=== PATIENT | male | born 1940 | race Caucasian/White ===

== ENCOUNTER 2023-12-02 20:56 | Emergency (ER) | payer OTHER, SELFPAY ==
[2023-12-02 21:02] VITALS: BP 156/83
[2023-12-02 21:22] LABS: % Eosinophils 0.2 % (0-6); % Immature Granulocytes 0.2 % (0-0.5); % Lymphocytes 32.3 % (20.5-51.1); % Monocytes 9.7 % (1.7-9.3); % Neutrophils 57.6 % (42.2-75.2); Absolute Lymphocytes 2.6 10^3/uL (1.2-3.4); Absolute Monocytes 0.8 10^3/uL (0.1-0.6); Absolute Neutrophils 4.7 10^3/uL (1.4-6.5); Hematocrit 36.1 % (39.0-52.0); Hemoglobin 13.3 g/dL (13.0-18.0); Mean Corp Hgb Conc. 36.8 g/dL (33.0-37.0); Mean Corpuscular Hgb 32.8 pg (27.0-31.0); Mean Corpuscular Volume 89.1 fL (80.0-94.0); Mean Platelet Volume 10.8 fL (7.4-10.4); Nucleated Red Blood Cells % 0 % (-); Platelet Count 237 10^3/uL (130-400); Red Blood Cell Count 4.05 10^6/uL (4.70-6.10); Red Cell Dist. Width 13.1 % (11.5-14.5); White Blood Cell Count 8.2 10^3/uL (4.8-10.8)
[2023-12-02 21:29] LABS: ALT (SGPT) 23 U/L (0-50); AST (SGOT) 40 U/L (17-59); Albumin 4.2 g/dl (3.5-5.0); Alkaline Phosphatase 56 U/L (38-126); Blood Urea Nitrogen 14 mg/dl (9-20); Calcium 9.4 mg/dl (8.4-10.2); Carbon Dioxide 26 mmol/L (22-30); Chloride 106 mmol/L (98-107); Glucose 95 mg/dl (70-99); Potassium 4.4 mmol/L (3.5-5.1); Sodium 136 mmol/L (135-145); Total Bilirubin 0.3 mg/dl (0.2-1.3); Total Protein 6.4 g/dl (6.3-8.2); eGFR > 60.00
[2023-12-02 21:40] LABS: Troponin I < 0.012 ng/ml
[2023-12-02 21:43] VITALS: BP 130/72
[2023-12-02 22:00] VITALS: BP 141/85
--- NOTE | 2023-12-02 22:27 | ED.GENMED ---
History of Present Illness
General
Chief Complaint: Chest Pain
Source: patient
Exam Limitations: none
Time Seen by Provider: 12/02/23 21:55
History of Present Illness
History of Present Illness:
This is a 82 year old male that comes in with c/o chest pain. States that around 12 noon today he just didn't feel good. States that he had left sided chest pain. States that his is away and he started to get fearful as he didn't want to be
alone. States that he then started to panic. States that the pain is less now. States that a week ago the patient went to and they said that they did an ECG and patient states that they did not. Denies any fever,chills, SOB, abd pain, nausea,
vomiting, diarrhea, headache, dizziness, urinary burning.
Past History
Past History
ED Past Medical History: HTN, Hypercholesterolemia and Other (Constipation)
ED Past Surgical History: Appendectomy and Other (Cataracts)
Social History
Tobacco: Non-smoker
Alcohol: None
Personal:
Living: with family
Review of Systems
Review of Systems
All Other Systems: ROS reviewed and negative except as documented in HPI and ROS
Constitutional: Reports no symptoms; Denies fever or chills
EENT: Reports no symptoms
Respiratory: Denies cough or trouble breathing
Cardiac: Reports chest pain
ABD/GI: Reports no symptoms; Denies abdominal pain, nausea, vomiting or diarrhea
: Reports no symptoms; Denies dysuria, frequency or urgency
Musculoskeletal: Reports no symptoms
Skin: Reports no symptoms
Neurological: Reports no symptoms; Denies dizzy or headache
Psychiatric: Reports no symptoms
Phy Exam
General Physical Exam
General Presentation: well appearing and no apparent distress
General age: appears stated age
General Skin: warm and dry
General Habitus: elderly
General Mental: alert
General Hydration: appears well hydrated
ENT Exam
ENT Exam: TM's normal, pharynx normal and neck supple
Eye Exam
Eye Exam: EOMI
Cardiovascular Exam
Cardiovascular Exam: regular rate/rhythm, no edema and normal peripheral pulses
Pulmonary Exam
Pulmonary Exam: lungs clear, no respiratory distress, no rales, chest non tender, no crackles, no rhonchi, no wheezing and no cough
Gastrointestinal Exam
Gastrointestinal Exam: normal bowel sounds, non tender, soft, no organomegaly, no pulsatile mass and non distended
Musculoskeletal Exam
Musculoskeletal Exam: full ROM and no edema
Skin Exam
Skin Exam: normal color, warm/dry, no rash and no petechia
Psychiatric Exam
Psychiatric Exam: normal mood/affect
Scores
Heart Score for Chest Pain Patients
STEMI patient?: No
History: Slightly or Non-Suspicious
ECG: Normal
Age: >/= 65 years
Risk Factors: 1 or 2 Risk Factors
Troponin: </= Normal Limit
Heart Score for Chest Pain Patients: 3
Heart Score Risk: 2.5% MACE over next 6 weeks
Course
Orders/Labs/Results
Orders:
Orders
12/02/23 20:57
Electrocardiogram (*1) Urgent
Reason for Study: Chest Pain
12/02/23 20:58
EKG- Treatment ONCE
12/02/23 21:09
CMP [Comprehensive Metabolic Panel] Urgent
Complete Blood Count/With Diff Urgent
Troponin I Urgent
12/02/23 22:27
Acetaminophen [Tylenol] 1,000 mg PO NOW STA
CR Chest - 2 Views Urgent
Comment:
Reason For Exam: Chest pain
12/03/23 00:01
Troponin I Urgent
Abnormal Lab Results
12/02/23
21:09
RBC 4.05 L 10^6/uL
(4.70-6.10)
Hct 36.1 L %
(39.0-52.0)
MCH 32.8 H pg
(27.0-31.0)
MPV 10.8 H fL
(7.4-10.4)
Absolute Monos (auto) 0.8 H 10^3/uL
(0.1-0.6)
Monocytes % 9.7 H %
(1.7-9.3)
12/02/23 21:09
12/02/23 21:09
Troponin <0.012, Second Troponin <0.012
Vital Signs
Initial and Last Documented VS:
Initial Vital Signs
Temp Pulse Resp BP Pulse Ox
98.3 F 76 18 156/83 97
12/02/23 21:02 12/02/23 21:02 12/02/23 21:02 12/02/23 21:02 12/02/23 21:02
Last Documented Vital Signs
Temp Pulse Resp BP Pulse Ox
98.3 F 58 21 134/68 96
12/02/23 21:02 12/02/23 23:30 12/02/23 23:30 12/02/23 23:07 12/02/23 23:30
MDM/Problems Addressed
Differential Diagnosis Includes:
Anxiety, Coronary syndrome.
MDM/Problems Addressed:
This is a 82 year old male that comes in with c/o chest pain. States that this started about 12 noon today. States that his is away and then he started to get fearful as he didn't want to be alone. States that he called his daughter and they
brought him here.
Will check labs ECG. and chest x-ray.
Back into see patient. Explained that his Both Troponin are normal. States that he is feeling better. Explained to patient that he will be place on the Cardiology hot line. Patient to return with increased or changing pain, or any other concerns.
Chronic conditions affecting care:
NA
Acute Exacerbation and/or Progression of Chronic Illness:
NA
*Radiology
Radiology exam reviewed: preliminary read by ED provider (Chest- Negative for active disease. )
*Pulse Oximetry
Patient hypoxic: no
*EKG
Interpreted by ED Provider?: Yes
Heart Rate: 62
Rate: normal
Rhythm: sinus
[place]: left axis deviation
Interval: normal interval
QRS Pattern: right bundle branch block
Ischemia: no ischemia
*Levee Superintendent Interpretation
Rate: normal
Heart Rate: 66
*Critical Care Note
Total Time (30-74mins, 75-104mins- exclusive of procedures): Not Applicable
ED Attending Note
-
Portions of this chart may have been created with voice recognition software.� Occasional wrong word or��sound alike� substitutions may have occurred due to the inherent limitations of voice recognition software.
Discharge Plan
Departure
Patient Disposition: Home (Routine Discharge)
Date of Disposition: 12/03/23
Time of Disposition: 00:45
Patient with high blood pressure during this ER visit?: Yes
Condition: Good
Covid-19: Not Applicable
Discharge Problem:
Chest pain
Instructions: Chest Pain CBC Follow Up, BLOOD PRESSURE
Prescriptions:
No Action
losartan 50 mg Tablet
50 mg PO HS
atorvastatin 20 mg Tablet
20 mg PO HS
polyethylene glycol 3350 [Miralax] 17 gram Powder In Packet
17 g PO DAILY
magnesium hydroxide [Medi-Milk Of Magnesia] 400 mg/5 mL Suspension
30 mg PO HS
tamsulosin 0.4 mg Capsule
0.4 mg PO HS
docusate sodium [Colace] 100 mg Capsule
100 mg PO HS
folic acid 1 mg Tablet
1 mg PO DAILY
finasteride 5 mg Tablet
5 mg PO DAILY
cholecalciferol (vitamin D3) [Vitamin D3] 50 mcg (2,000 unit) Tablet
50 mcg PO DAILY
Linzess 290 mcg Capsule
290 mcg PO DAILY
memantine 7 mg Capsule,Sprinkle,Er 24hr
7 mg PO DAILY
mecobalamin (vitamin B12) 1,000 mcg Tablet,Disintegrating
1,000 mcg SUBLINGUAL DAILY
Referrals:
Dwayne Carcamo MD [Family Provider] - Call in 1-3 days for appt
Activity Restrictions/Additional Instructions:
As discussed, your blood work is normal. Your Both Troponin are normal. You have been place on the Cardiology hot line. This means that the Cardiology office will call you the next business day and set you up for an appointment with the
[employer]. IF YOU HAVE INCREASED OR CHANGING PAIN, OR YOU HAVE ANY OTHER CONCERNS PLEASE RETURN TO THE EMERGENCY ROOM.
Interventions
Interventions:
*Risk Screen - Suicide Last Done: 12/02/23 21:02
*General Assessment Last Done: 12/02/23 21:02
*Neglect/Abuse Screening Last Done: 12/02/23 21:02
ED- Fall Risk Assessment Last Done: 12/02/23 22:51
*ED COVID-19 Vaccine History Last Done: 12/02/23 21:02
ED- Cardiac Assessment Last Done: 12/02/23 21:51
Discharge Date and Time
Print Language: SETSWANA
[2023-12-02] MEDS: TYLENOL 1000 MG PO (22:31)
--- NOTE | 2023-12-02 23:00 | EDRN ---
Report received, introduced myself to patient who was just in the bathroom, hooked patient back up to monitor and he is aware we well repeat blood work at 0000, no further complaints
[2023-12-02 23:07] VITALS: BP 134/68
[2023-12-03] VITALS: BP 129/78
[2023-12-03 00:38] LABS: Troponin I < 0.012 ng/ml
--- NOTE | 2023-12-03 01:00 | EDRN ---
Patient was updated on lab results and plan for discharge
== END 2023-12-03 01:09 | disposition home or self-care (01) ==
LOC: EMR 20:56
PROVIDERS: Clinical Nurse Specialist Family Health; Emergency Medicine; EMERGENCY PHYSICIAN Student in an Organized Health Care Education/Training Program; FAMILY PHYSICIAN Internal Medicine
DX: R07.89 Other chest pain (principal); I10 Essential (primary) hypertension; E78.00 Pure hypercholesterolemia, unspecified; I45.10 Unspecified right bundle-branch block
CPT/HCPCS: 99283; 71046; 80053; 84484; 85025; 93005

== ENCOUNTER 2023-12-19 19:39 | Emergency (ER) | payer OTHER, SELFPAY ==
[2023-12-19 19:39] VITALS: BMI 23.9
[2023-12-19 19:46] VITALS: BP 138/64
[2023-12-19 19:59] LABS: % Eosinophils 0.4 % (0-6); % Immature Granulocytes 0.3 % (0-0.5); % Lymphocytes 28.9 % (20.5-51.1); % Monocytes 9.9 % (1.7-9.3); % Neutrophils 60.5 % (42.2-75.2); Absolute Lymphocytes 2.2 10^3/uL (1.2-3.4); Absolute Monocytes 0.8 10^3/uL (0.1-0.6); Absolute Neutrophils 4.6 10^3/uL (1.4-6.5); Hematocrit 36.8 % (39.0-52.0); Hemoglobin 13.5 g/dL (13.0-18.0); Mean Corp Hgb Conc. 36.7 g/dL (33.0-37.0); Mean Corpuscular Hgb 32.8 pg (27.0-31.0); Mean Corpuscular Volume 89.5 fL (80.0-94.0); Mean Platelet Volume 10.4 fL (7.4-10.4); Nucleated Red Blood Cells % 0 % (-); Platelet Count 219 10^3/uL (130-400); Red Blood Cell Count 4.11 10^6/uL (4.70-6.10); Red Cell Dist. Width 12.9 % (11.5-14.5); White Blood Cell Count 7.6 10^3/uL (4.8-10.8)
[2023-12-19 21:23] LABS: Blood Urea Nitrogen 14 mg/dl (9-20); Carbon Dioxide 26 mmol/L (22-30); Chloride 105 mmol/L (98-107); Glucose 101 mg/dl (70-99); Lipase 128 U/L (23-300); Potassium 4.6 mmol/L (3.5-5.1); Sodium 138 mmol/L (135-145); eGFR > 60.00
[2023-12-19 21:24] VITALS: BP 148/71
[2023-12-19 21:24] LABS: ALT (SGPT) 26 U/L (0-50); AST (SGOT) 40 U/L (17-59); Albumin 4.2 g/dl (3.5-5.0); Alkaline Phosphatase 62 U/L (38-126); Calcium 9.1 mg/dl (8.4-10.2); Total Bilirubin 0.4 mg/dl (0.2-1.3); Total Protein 6.7 g/dl (6.3-8.2)
[2023-12-19 21:37] LABS: Estimated Creatinine Clearance 77 ml/min
[2023-12-19 22:00] VITALS: BP 112/63
[2023-12-19 23:29] VITALS: BP 145/74
[2023-12-20 00:02] VITALS: BP 147/70
[2023-12-20] MEDS: NSS 1000 IV (00:08)
--- NOTE | 2023-12-20 00:14 | ED.GENMED ---
History of Present Illness
General
Chief Complaint: Bowel Problem
Source: patient
Exam Limitations: none
Time Seen by Provider: 12/19/23 22:42
History of Present Illness
History of Present Illness:
This is a 83 year old male that comes in with c/o constipation. States that he has not had a BM in the past 2 days. States that he feels discomfort on the right sided. States that he has tried Miralax BID, Metamucal, MOM BID and COlace BID. States
that nothing is happening. Denies any fever, chills, chest pain, SOB, nausea, vomiting, diarrhea, headache, dizziness, urinary burning.
Past History
Past History
ED Past Medical History: HTN, Hypercholesterolemia and Other (Constipation)
ED Past Surgical History: Appendectomy and Other (Cataracts)
Social History
Tobacco: Non-smoker
Alcohol: None
Personal:
Living: with family
Review of Systems
Review of Systems
All Other Systems: ROS reviewed and negative except as documented in HPI and ROS
Constitutional: Reports no symptoms; Denies fever or chills
EENT: Reports no symptoms
Respiratory: Reports no symptoms; Denies cough or trouble breathing
Cardiac: Reports no symptoms; Denies chest pain
ABD/GI: Reports abdominal pain (Right sided pain) and constipated; Denies nausea, vomiting or diarrhea
: Reports no symptoms; Denies dysuria, frequency or urgency
Musculoskeletal: Reports no symptoms
Skin: Reports no symptoms
Neurological: Reports no symptoms; Denies dizzy or headache
Psychiatric: Reports no symptoms
Phy Exam
General Physical Exam
General Presentation: no apparent distress
General age: appears stated age
General Skin: warm and dry
General Habitus: elderly
General Mental: alert
General Hydration: appears well hydrated
ENT Exam
ENT Exam: TM's normal, pharynx normal and neck supple
Eye Exam
Eye Exam: EOMI
Cardiovascular Exam
Cardiovascular Exam: regular rate/rhythm, no edema and normal peripheral pulses
Pulmonary Exam
Pulmonary Exam: lungs clear, no respiratory distress, no rales, chest non tender, no crackles, no rhonchi, no wheezing and no cough
Gastrointestinal Exam
Gastrointestinal Exam: normal bowel sounds, soft, no organomegaly, no pulsatile mass, non distended and tender (Right sided abd tenderness with palpation)
Musculoskeletal Exam
Musculoskeletal Exam: full ROM and no edema
Skin Exam
Skin Exam: normal color, warm/dry, no rash and no petechia
Psychiatric Exam
Psychiatric Exam: normal mood/affect
Course
Orders/Labs/Results
Orders:
Orders
12/19/23 19:52
CBC/With Diff [Complete Blood Count/With Diff] Urgent
CMP [Comprehensive Metabolic Panel] Urgent
Lipase Urgent
12/19/23 23:17
CT Abd/pelvis W Iv Cont Urgent
Comment: hISTORY OF APPENDECTOMY
Reason For Exam: rIGHT SIDED ABD PAIN
0.9% Sodium Chloride 1000 ml [Nss] 1,000 ml IV BOLUS
Abnormal Lab Results
12/19/23
19:52
RBC 4.11 L 10^6/uL
(4.70-6.10)
Hct 36.8 L %
(39.0-52.0)
MCH 32.8 H pg
(27.0-31.0)
Absolute Monos (auto) 0.8 H 10^3/uL
(0.1-0.6)
Monocytes % 9.9 H %
(1.7-9.3)
Glucose 101 H mg/dl
(70-99)
12/19/23 19:52
12/19/23 19:52
Glucose nonfasting. LIpase normal at 128,
Vital Signs
Initial and Last Documented VS:
Initial Vital Signs
Temp Pulse Resp BP Pulse Ox
97.9 F 70 19 138/64 98
12/19/23 19:46 12/19/23 19:46 12/19/23 19:46 12/19/23 19:46 12/19/23 19:46
Last Documented Vital Signs
Temp Pulse Resp BP Pulse Ox
97.9 F 75 18 145/74 99
12/19/23 19:46 12/19/23 22:27 12/19/23 22:27 12/19/23 23:29 12/19/23 23:34
MDM/Problems Addressed
Differential Diagnosis Includes:
Constipation.
MDM/Problems Addressed:
This is a 83 year old male that comes in with c/o constipation. States that he has not moved his bowel in the past 2 days. States that he has right sided abd pain.
Will check labs and get CT scan.
Back into see patient. Explained that his CT does show constipation. Will give patient a bottle of magnesium citrate for home. Explained that this can cause abd cramping and can take up to 6 hours to work. Patient can also try Prune juice and mix
this with apple juice in equal amounts and heat and drink daily. Follow up with the GI specialist. Return with any concerns
Chronic conditions affecting care:
Constipation
Acute Exacerbation and/or Progression of Chronic Illness:
Constipation
*Radiology
Radiology exam reviewed: radiology read reviewed (CT night hawk- Moderate to large stool burden. Correlate for constipation. NO bowel obstruction or bowel wall thickening. Similar-sized small left inguinal hernia containing a nonobstructed loop of
small bowel. Similar small right inguinal hernia containing predominantly fat (with a small bowel ) and all reviewed NAD by ED Provider (CT cont-At the hernia opening). Unremarkable gallbladder and pancreas. No obstructive uropathy. Prominnt
prostate gland. Degenerative changes in the spine with mild scoliosis. Focal bronchiectasis and mucus plugging at the left lung base. )
*Pulse Oximetry
Patient hypoxic: no
*EKG
Interpreted by ED Provider?: NA
Rate: EKG- N/A
*Data Typist Interpretation
Rate: Data Typist- N/A
*Critical Care Note
Total Time (30-74mins, 75-104mins- exclusive of procedures): Not Applicable
ED Attending Note
-
Portions of this chart may have been created with voice recognition software.� Occasional wrong word or��sound alike� substitutions may have occurred due to the inherent limitations of voice recognition software.
Discharge Plan
Departure
Patient Disposition: Home (Routine Discharge)
Date of Disposition: 12/20/23
Time of Disposition: 00:28
Patient with high blood pressure during this ER visit?: No
Condition: Good
Covid-19: Not Applicable
Discharge Problem:
Constipation
Instructions: Constipation, Adult (DC)
Prescriptions:
No Action
losartan 50 mg Tablet
50 mg PO HS
atorvastatin 20 mg Tablet
20 mg PO HS
polyethylene glycol 3350 [Miralax] 17 gram Powder In Packet
17 g PO DAILY
magnesium hydroxide [Medi-Milk Of Magnesia] 400 mg/5 mL Suspension
30 mg PO HS
tamsulosin 0.4 mg Capsule
0.4 mg PO HS
docusate sodium [Colace] 100 mg Capsule
100 mg PO BID
folic acid 1 mg Tablet
1 mg PO DAILY
finasteride 5 mg Tablet
5 mg PO DAILY
cholecalciferol (vitamin D3) [Vitamin D3] 50 mcg (2,000 unit) Tablet
50 mcg PO DAILY
Linzess 290 mcg Capsule
290 mcg PO DAILY
memantine 7 mg Capsule,Sprinkle,Er 24hr
7 mg PO DAILY
mecobalamin (vitamin B12)
100 mcg
Referrals:
Dwayne Carcamo MD [Family Provider] - Call in 1-3 days for appt
Activity Restrictions/Additional Instructions:
As discussed, your blood work is normal. Your CT shows that you are very constipated. You have lower abd hernia's on both sided. Please increase your water intake to 8-8oz glasses daily. You may also mix Prune juice and apple juice in equal amounts
and heat and drink daily. You have been given a bottle of Magnesium Citrate. Please drink the entire bottle. This can cause abdominal cramping and can take up to 6 hours to work. Follow up with the Gastrointestinal specialist for further evaluation.
IF YOU HAVE INCREASED ABD PAIN, VOMITING, OR YOU HAVE ANY OTHER CONCERNS PLEASE RETURN TO THE EMERGENCY ROOM.
Interventions
Interventions:
*Risk Screen - Suicide Last Done: 12/19/23 21:29
*General Assessment Last Done: 12/19/23 21:29
*Neglect/Abuse Screening Last Done: 12/19/23 21:29
ED- Fall Risk Assessment Last Done: 12/19/23 21:29
*ED COVID-19 Vaccine History Last Done: 12/19/23 21:29
LY-Wirrja-Liwtdxbpnd Assessment Last Done: 12/19/23 23:34
Discharge Date and Time
Print Language: MACEDONIAN
[2023-12-20] MEDS: CITROMA 300 ML PO (01:00)
[2023-12-20 01:05] VITALS: BP 143/66
== END 2023-12-20 01:10 | disposition home or self-care (01) ==
LOC: EMR 19:39
PROVIDERS: Emergency Medicine; EMERGENCY PHYSICIAN Student in an Organized Health Care Education/Training Program; FAMILY PHYSICIAN Internal Medicine
DX: K59.00 Constipation, unspecified (principal); J47.9 Bronchiectasis, uncomplicated; K40.90 Unilateral inguinal hernia, without obstruction or gangrene, not specified as recurrent; M41.9 Scoliosis, unspecified; E78.00 Pure hypercholesterolemia, unspecified; I10 Essential (primary) hypertension
CPT/HCPCS: 99284; 96360; 74177; 80053; 83690; 85025; Q9967

== ENCOUNTER 2024-01-21 19:38 | Emergency (ER) | payer OTHER, SELFPAY ==
[2024-01-21 19:43] VITALS: BP 147/76
[2024-01-21 19:51] VITALS: BMI 24.2
--- NOTE | 2024-01-21 20:13 | ED.GENMED ---
History of Present Illness
General
Chief Complaint: Bowel Problem
Source: patient and records
Time Seen by Provider: 01/21/24 19:52
History of Present Illness
History of Present Illness:
83yoM with a history of hypertension and hyperlipidemia presenting for evaluation of constipation. Patient reports ongoing issues with constipation for which he follows with gastroenterology. Patient has not had a bowel movement in the past 2 days.
He has been taking multiple medications including Miralax, Colace, milk of magnesia, and Linzess without improvement. He also self-administered a fleets enema today without success. Patient reports LLQ pain which has been ongoing and keeps patient
up at night at times. He denies any urinary retention, nausea, vomiting. He was seen in the ED last month for similar symptoms and was treated with magnesium citrate.
Past History
Past History
ED Past Medical History: HTN, Hypercholesterolemia and Other (Constipation)
ED Past Surgical History: Appendectomy and Other (Cataracts)
Social History
Tobacco: Non-smoker
Alcohol: None
Personal:
Living: with family
Phy Exam
General Physical Exam
General Presentation: well appearing and no apparent distress
General age: appears stated age
General Skin: warm and dry
General Habitus: normal
General Mental: alert
ENT Exam
ENT Exam: normocephalic
Pulmonary Exam
Pulmonary Exam: no respiratory distress
Gastrointestinal Exam
Gastrointestinal Exam: soft, non distended and tender (+Mild tenderness to LLQ. Abdomen soft, non-distended. No rebound or guarding. )
Palpation: left lower quadrant: Mild tenderness
Rectal Exam: other (No stool in rectal vault on digital rectal exam.)
Skin Exam
Skin Exam: normal color and warm/dry
Psychiatric Exam
Psychiatric Exam: normal mood/affect
Course
Orders/Labs/Results
Orders:
Orders
01/21/24 20:10
CT Abd/pelvis W Iv Cont Urgent
Comment:
Reason For Exam: LLQ pain, constipation
01/21/24 20:13
Complete Blood Count/With Diff Urgent
Comprehensive Metabolic Panel Urgent
01/21/24 21:30
Enema- Treatment ONCE
Type: Milk of Molasses
Abnormal Lab Results
01/21/24
20:13
RBC 3.90 L 10^6/uL
(4.70-6.10)
Hgb 12.5 L g/dL
(13.0-18.0)
Hct 33.9 L %
(39.0-52.0)
MCH 32.1 H pg
(27.0-31.0)
Absolute Monos (auto) 0.7 H 10^3/uL
(0.1-0.6)
Monocytes % 10.3 H %
(1.7-9.3)
Total Protein 6.2 L g/dl
(6.3-8.2)
01/21/24 20:13
01/21/24 20:13
Vital Signs
Initial and Last Documented VS:
Initial Vital Signs
Temp Pulse Resp BP Pulse Ox
98.6 F 64 18 147/76 98
01/21/24 19:43 01/21/24 19:43 01/21/24 19:43 01/21/24 19:43 01/21/24 19:43
Last Documented Vital Signs
Temp Pulse Resp BP Pulse Ox
98.6 F 64 18 147/76 98
01/21/24 19:43 01/21/24 19:43 01/21/24 20:05 01/21/24 19:43 01/21/24 19:43
MDM/Problems Addressed
Differential Diagnosis Includes:
83yoM here with constipation x 2 days. Also c/o LLQ pain. Hx of the same. On multiple medications including Linzess, Miralax, Colace. Seen in the ED last month for the same. He is afebrile and hemodynamically stable. He is well appearing in no
distress. No signs of peritonitis on abdominal exam. Differential diagnosis includes but is not limited to: constipation, diverticulitis, bowel obstruction
Initial ED plan: Check CBC, CMP, and CT abdomen.
*Critical Care Note
Total Time (30-74mins, 75-104mins- exclusive of procedures): Not Applicable
Update Note
Update Note:
Labs overall unremarkable. CT abdomen shows moderate constipation. No obstruction or diverticulitis noted. Patient given a milk of molasses enema and was able to have a moderate BM after enema. Abdominal pain improved and patient requesting
discharge. He was advised to f/u with his PCP and cutter operator [employer]. ED return precautions discussed. He was discharged in stable condition.
ED Attending Note
-
Portions of this chart may have been created with voice recognition software.� Occasional wrong word or��sound alike� substitutions may have occurred due to the inherent limitations of voice recognition software.
Discharge Plan
Departure
Patient Disposition: Home (Routine Discharge)
Date of Disposition: 01/21/24
Time of Disposition: 22:34
Patient with high blood pressure during this ER visit?: Yes
Discharge Problem:
Constipation
Instructions: Constipation, Adult (DC)
Prescriptions:
No Action
losartan 50 mg Tablet
50 mg PO HS
atorvastatin 20 mg Tablet
20 mg PO HS
polyethylene glycol 3350 [Miralax] 17 gram Powder In Packet
17 g PO DAILY
magnesium hydroxide [Medi-Milk Of Magnesia] 400 mg/5 mL Suspension
30 mg PO HS
tamsulosin 0.4 mg Capsule
0.4 mg PO HS
docusate sodium [Colace] 100 mg Capsule
200 mg PO HS
folic acid 1 mg Tablet
1 mg PO DAILY
finasteride 5 mg Tablet
5 mg PO DAILY
cholecalciferol (vitamin D3) [Vitamin D3] 50 mcg (2,000 unit) Tablet
50 mcg PO DAILY
Linzess 290 mcg Capsule
290 mcg PO DAILY
memantine 7 mg Capsule,Sprinkle,Er 24hr
14 mg PO DAILY
mecobalamin (vitamin B12)
100 mcg PO DAILY
Saccharomyces boulardii [Florastor] 250 mg Capsule
250 mg PO DAILY
metoprolol tartrate 25 mg Tablet
25 mg PO DAILY
aspirin 81 mg Capsule
81 mg PO DAILY
Referrals:
Dwayne Carcamo MD [Family Provider] -
Activity Restrictions/Additional Instructions:
Continue taking Miralax, Colace, and Linzess.
Please call your cutter operator [employer] tomorrow for follow-up. Return to the ER with any worsening symptoms.
Interventions
Interventions:
*Risk Screen - Suicide Last Done: 01/21/24 19:58
*General Assessment Last Done: 01/21/24 19:58
*Neglect/Abuse Screening Last Done: 01/21/24 19:58
*ED COVID-19 Vaccine History Last Done: 01/21/24 19:58
TK-Rjovcn-Zgwibxtmeq Assessment Last Done: 01/21/24 19:58
Discharge Date and Time
Print Language: QATARI
[2024-01-21 20:21] LABS: % Eosinophils 0.1 % (0-6); % Immature Granulocytes 0.3 % (0-0.5); % Lymphocytes 34.5 % (20.5-51.1); % Monocytes 10.3 % (1.7-9.3); % Neutrophils 54.8 % (42.2-75.2); Absolute Lymphocytes 2.3 10^3/uL (1.2-3.4); Absolute Monocytes 0.7 10^3/uL (0.1-0.6); Absolute Neutrophils 3.7 10^3/uL (1.4-6.5); Hematocrit 33.9 % (39.0-52.0); Hemoglobin 12.5 g/dL (13.0-18.0); Mean Corp Hgb Conc. 36.9 g/dL (33.0-37.0); Mean Corpuscular Hgb 32.1 pg (27.0-31.0); Mean Corpuscular Volume 86.9 fL (80.0-94.0); Mean Platelet Volume 10.3 fL (7.4-10.4); Nucleated Red Blood Cells % 0 % (-); Platelet Count 235 10^3/uL (130-400); Red Cell Dist. Width 12.4 % (11.5-14.5); White Blood Cell Count 6.8 10^3/uL (4.8-10.8)
[2024-01-21 20:36] LABS: ALT (SGPT) 25 U/L (0-50); AST (SGOT) 42 U/L (17-59); Albumin 3.9 g/dl (3.5-5.0); Alkaline Phosphatase 52 U/L (38-126); Blood Urea Nitrogen 15 mg/dl (9-20); Carbon Dioxide 26 mmol/L (22-30); Chloride 104 mmol/L (98-107); Estimated Creatinine Clearance 75 ml/min; Glucose 94 mg/dl (70-99); Potassium 4.4 mmol/L (3.5-5.1); Sodium 139 mmol/L (135-145); Total Bilirubin 0.3 mg/dl (0.2-1.3); Total Protein 6.2 g/dl (6.3-8.2); eGFR > 60.00
[2024-01-21 22:48] VITALS: BP 143/77
== END 2024-01-21 22:50 | disposition home or self-care (01) ==
LOC: EMR 19:38
PROVIDERS: Physician Assistant; EMERGENCY PHYSICIAN Emergency Medicine; FAMILY PHYSICIAN Internal Medicine
DX: K59.00 Constipation, unspecified (principal); I10 Essential (primary) hypertension; E78.00 Pure hypercholesterolemia, unspecified
CPT/HCPCS: 99285; 74177; 80053; 85025; Q9967

== ENCOUNTER 2024-02-06 19:41 | Emergency (ER) | payer OTHER, SELFPAY ==
[2024-02-06 19:51] VITALS: BP 137/69
[2024-02-06 20:18] LABS: % Eosinophils 0.6 % (0-6); % Immature Granulocytes 0.1 % (0-0.5); % Lymphocytes 35.3 % (20.5-51.1); % Monocytes 9.6 % (1.7-9.3); % Neutrophils 54.4 % (42.2-75.2); Absolute Lymphocytes 2.4 10^3/uL (1.2-3.4); Absolute Monocytes 0.7 10^3/uL (0.1-0.6); Absolute Neutrophils 3.7 10^3/uL (1.4-6.5); Hematocrit 35.2 % (39.0-52.0); Mean Corp Hgb Conc. 36.9 g/dL (33.0-37.0); Mean Corpuscular Hgb 31.6 pg (27.0-31.0); Mean Corpuscular Volume 85.6 fL (80.0-94.0); Mean Platelet Volume 10.4 fL (7.4-10.4); Nucleated Red Blood Cells % 0 % (-); Platelet Count 242 10^3/uL (130-400); Red Blood Cell Count 4.11 10^6/uL (4.70-6.10); Red Cell Dist. Width 12.3 % (11.5-14.5); White Blood Cell Count 6.9 10^3/uL (4.8-10.8)
[2024-02-06 20:34] LABS: ALT (SGPT) 25 U/L (0-50); AST (SGOT) 41 U/L (17-59); Albumin 4.2 g/dl (3.5-5.0); Alkaline Phosphatase 53 U/L (38-126); Blood Urea Nitrogen 13 mg/dl (9-20); Calcium 9.7 mg/dl (8.4-10.2); Carbon Dioxide 25 mmol/L (22-30); Chloride 105 mmol/L (98-107); Glucose 93 mg/dl (70-99); Potassium 4.5 mmol/L (3.5-5.1); Sodium 140 mmol/L (135-145); Total Bilirubin 0.3 mg/dl (0.2-1.3); Total Protein 6.7 g/dl (6.3-8.2); eGFR > 60.00
[2024-02-06 20:35] LABS: Lipase 204 U/L (23-300)
[2024-02-06 21:49] LABS: Urine Albumin Negative (Neg - Trace); Urine Bilirubin Negative (Negative); Urine Character Slightly Cloudy (Clear); Urine Color Yellow; Urine Glucose Negative (Negative); Urine Ketone Negative (Negative); Urine Leukocyte Negative (Negative); Urine Nitrite Negative (Negative); Urine Occult Blood Negative (Negative); Urine Specific Gravity 1.015 (<1.030); Urine Urobilinogen Negative (Neg - 1+); Urine pH 6.5 (5.0-9.0)
--- NOTE | 2024-02-06 23:48 | ED.GENMED ---
History of Present Illness
General
Chief Complaint: Abdominal Pain
Source: patient
Exam Limitations: none
Time Seen by Provider: 02/06/24 22:57
History of Present Illness
History of Present Illness:
This is a 83 year old male that comes in with c/o constipation. States that he always has problems with constipation. State that his last BM was yesterday. State that it was very small. States that he has taken Miralax Colace and Linzess. States
that he also took Gulliver oil today 2 -3 spoons full. States that he has not moved his bowels. states that the day before yesterday he did an enema and Magnesium citrate and this cleaned him out. Denies any fever, chills, chest pain, SOB,
nausea, vomiting, diarrhea, headache, dizziness, urinary burning.
Past History
Past History
ED Past Medical History: HTN, Hypercholesterolemia and Other (Constipation)
ED Past Surgical History: Appendectomy and Other (Cataracts)
Social History
Tobacco: Non-smoker
Alcohol: None
Personal:
Living: with family
Review of Systems
Review of Systems
All Other Systems: ROS reviewed and negative except as documented in HPI and ROS
Constitutional: Reports no symptoms; Denies fever or chills
EENT: Reports no symptoms
Respiratory: Reports no symptoms; Denies cough or trouble breathing
Cardiac: Reports no symptoms; Denies chest pain
ABD/GI: Reports abdominal pain and constipated; Denies nausea, vomiting or diarrhea
: Reports no symptoms; Denies dysuria, frequency or urgency
Musculoskeletal: Reports no symptoms
Skin: Reports no symptoms
Neurological: Reports no symptoms; Denies dizzy or headache
Psychiatric: Reports no symptoms
Phy Exam
General Physical Exam
General Presentation: well appearing and no apparent distress
General age: appears stated age
General Skin: warm and dry
General Habitus: elderly
General Mental: alert
General Hydration: appears well hydrated
ENT Exam
ENT Exam: TM's normal, pharynx normal and neck supple
Eye Exam
Eye Exam: EOMI
Cardiovascular Exam
Cardiovascular Exam: regular rate/rhythm, no edema, no murmur and normal peripheral pulses
Pulmonary Exam
Pulmonary Exam: lungs clear, no respiratory distress, no rales, chest non tender, no crackles, no rhonchi, no wheezing and no cough
Gastrointestinal Exam
Gastrointestinal Exam: normal bowel sounds, non tender, soft, no organomegaly, no pulsatile mass and non distended
Musculoskeletal Exam
Musculoskeletal Exam: full ROM and no edema
Skin Exam
Skin Exam: normal color, warm/dry, no rash and no petechia
Psychiatric Exam
Psychiatric Exam: normal mood/affect
Course
Orders/Labs/Results
Orders:
Orders
02/06/24 20:11
Complete Blood Count/With Diff Urgent
Comprehensive Metabolic Panel Urgent
Lipase Urgent
02/06/24 21:43
Urinalysis Reflex To Culture Urgent
Date Specimen was Collected: 02/06/24
Time Specimen was Collected: 19:57
02/06/24 22:40
Ondansetron Injectable [Zofran] 4 mg .ROUTE .STK-MED ONE
02/06/24 23:48
CR Abdomen - 1 View Urgent
Comment:
Reason For Exam: Constipation
Abnormal Lab Results
02/06/24
20:11
RBC 4.11 L 10^6/uL
(4.70-6.10)
Hct 35.2 L %
(39.0-52.0)
MCH 31.6 H pg
(27.0-31.0)
Absolute Monos (auto) 0.7 H 10^3/uL
(0.1-0.6)
Monocytes % 9.6 H %
(1.7-9.3)
02/06/24 20:11
02/06/24 20:11
Labs unremarkable. Lipase normal at 203, Urine negative for infection.
Vital Signs
Initial and Last Documented VS:
Initial Vital Signs
Temp Pulse Resp BP Pulse Ox
99.3 F 69 20 137/69 98
02/06/24 19:51 02/06/24 19:51 02/06/24 19:51 02/06/24 19:51 02/06/24 19:51
Last Documented Vital Signs
Temp Pulse Resp BP Pulse Ox
98.9 F 68 18 129/87 100
02/07/24 00:00 02/07/24 00:00 02/07/24 00:00 02/07/24 00:00 02/07/24 00:00
MDM/Problems Addressed
Differential Diagnosis Includes:
Constipation chronic,
MDM/Problems Addressed:
This is a 83 year old male that comes in with c/o constipation. states that he did not have a BM today but a little yesterday. Patient is a vegetarian and states that he only eats vegetables.
Explained to patient that his Blood work is normal. Explained that you don't have to move our bowels every day. Explained that since he cleaned himself out 2 days ago there may not be anything in the colon. Will get x-ray.
Back into see patient. Explained that he has stool in the bowel that is on the right sided and has not moved around to the descending colon. Encouraged patient to continue with Miralax, water, fruits and vegetables. Patient to follow up with the PCP
or GI specialist to help with a bowel regimen. Return with any concerns.
Chronic conditions affecting care:
Chronic constiaption
Acute Exacerbation and/or Progression of Chronic Illness:
Constipation
*Radiology
Radiology exam reviewed: preliminary read by ED provider (RENNY- Constipation)
*Pulse Oximetry
Patient hypoxic: no
*EKG
Interpreted by ED Provider?: NA
Rate: EKG- N/A
*Machine Repair Person Interpretation
Rate: Machine Repair Person- N/A
*Critical Care Note
Total Time (30-74mins, 75-104mins- exclusive of procedures): Not Applicable
ED Attending Note
-
Portions of this chart may have been created with voice recognition software.� Occasional wrong word or��sound alike� substitutions may have occurred due to the inherent limitations of voice recognition software.
Discharge Plan
Departure
Patient Disposition: Home (Routine Discharge)
Date of Disposition: 02/07/24
Time of Disposition: 01:01
Patient with high blood pressure during this ER visit?: Yes
Condition: Good
Covid-19: Not Applicable
Discharge Problem:
Constipation
Instructions: Constipation, Adult (DC), BLOOD PRESSURE
Prescriptions:
No Action
losartan 50 mg Tablet
50 mg PO HS
atorvastatin 20 mg Tablet
20 mg PO HS
polyethylene glycol 3350 [Miralax] 17 gram Powder In Packet
17 g PO DAILY
magnesium hydroxide [Medi-Milk Of Magnesia] 400 mg/5 mL Suspension
30 mg PO HS
tamsulosin 0.4 mg Capsule
0.4 mg PO HS
docusate sodium [Colace] 100 mg Capsule
200 mg PO HS
folic acid 1 mg Tablet
1 mg PO DAILY
finasteride 5 mg Tablet
5 mg PO DAILY
cholecalciferol (vitamin D3) [Vitamin D3] 50 mcg (2,000 unit) Tablet
50 mcg PO DAILY
Linzess 290 mcg Capsule
290 mcg PO DAILY
memantine 7 mg Capsule,Sprinkle,Er 24hr
14 mg PO DAILY
mecobalamin (vitamin B12)
100 mcg PO DAILY
Saccharomyces boulardii [Florastor] 250 mg Capsule
250 mg PO DAILY
metoprolol tartrate 25 mg Tablet
25 mg PO DAILY
aspirin 81 mg Capsule
81 mg PO DAILY
Referrals:
Dwayne Carcamo MD [Family Provider] - Call in 1-3 days for appt
Activity Restrictions/Additional Instructions:
As discussed, there is stool in the bowel that is in the ascending colon and this has to move around to the descending colon and rectum. You need to eat more food. Please eat fruit and vegetables daily such as apples, Blueberry's, Raspberries,
Kidney beans and Lentils. This will all help with constipation. Please increase your water intake to 8-8oz glasses daily. Follow up with the family doctor for further evaluation. IF YOU HAVE ANY OTHER CONCERNS PLEASE RETURN TO THE EMERGENCY ROOM.
Interventions
Interventions:
*Risk Screen - Suicide Last Done: 02/06/24 19:51
*General Assessment Last Done: 02/06/24 19:51
*Neglect/Abuse Screening Last Done: 02/06/24 19:51
ED- Fall Risk Assessment Last Done: 02/06/24 19:51
*ED COVID-19 Vaccine History Last Done: 02/06/24 19:51
IM-Bzlobi-Mujgwlcbfs Assessment Last Done: 02/06/24 23:06
Discharge Date and Time
Print Language: BRUNEIAN
[2024-02-07] VITALS: BP 129/87
== END 2024-02-07 01:10 | disposition home or self-care (01) ==
LOC: EMR 19:41
PROVIDERS: Emergency Medicine; EMERGENCY PHYSICIAN Student in an Organized Health Care Education/Training Program; FAMILY PHYSICIAN Internal Medicine
DX: K59.00 Constipation, unspecified (principal); R10.9 Unspecified abdominal pain; I10 Essential (primary) hypertension; E78.00 Pure hypercholesterolemia, unspecified; Z79.82 Long term (current) use of aspirin
CPT/HCPCS: 99283; 74018; 80053; 81003; 83690; 85025; 93005

== ENCOUNTER → 2024-02-17 10:31 | Outpatient (REF) | payer OTHER, SELFPAY | LOC: HWRAD 10:31 | PROVIDERS: ATTENDING PHYSICIAN Internal Medicine Gastroenterology; FAMILY PHYSICIAN Internal Medicine | DX: R19.5 Other fecal abnormalities (principal) | CPT/HCPCS: 74261 ==

== ENCOUNTER 2024-07-02 06:57 | Emergency (ER) | payer OTHER, SELFPAY ==
[2024-07-02 07:01] VITALS: BP 146/73
[2024-07-02] MEDS: OMNIPAQUE 50 ML PO (07:24)
[2024-07-02 07:33] VITALS: BMI 21.2
[2024-07-02 07:49] LABS: % Eosinophils 0.2 % (0-6); % Immature Granulocytes 0.2 % (0-0.5); % Lymphocytes 32.7 % (20.5-51.1); % Monocytes 10.9 % (1.7-9.3); Absolute Lymphocytes 1.8 10^3/uL (1.2-3.4); Absolute Monocytes 0.6 10^3/uL (0.1-0.6); Hemoglobin 13.4 g/dL (13.0-18.0); Mean Corp Hgb Conc. 36.2 g/dL (33.0-37.0); Mean Corpuscular Volume 88.3 fL (80.0-94.0); Mean Platelet Volume 10.6 fL (7.4-10.4); Nucleated Red Blood Cells % 0 % (-); Platelet Count 228 10^3/uL (130-400); Red Blood Cell Count 4.19 10^6/uL (4.70-6.10); Red Cell Dist. Width 13.1 % (11.5-14.5); White Blood Cell Count 5.4 10^3/uL (4.8-10.8)
--- NOTE | 2024-07-02 07:56 | ED.GENMED ---
History of Present Illness
General
Chief Complaint: Bowel Problem
Source: patient
Exam Limitations: none
Time Seen by Provider: 07/02/24 07:09
Nursing documentation reviewed up to this point in time: agreed with
History of Present Illness
History of Present Illness:
83-year-old male past medical history of hypertension hyperlipidemia presenting to the emergency department today with concerns of decreased bowel movements over the past 3 days. He claims this is worse than usual unable to have any bowel movements
despite taking multiple medications to help have a bowel movement. Has had some worsening abdominal bloating and discomfort.
Past History
Past History
ED Past Medical History: HTN, Hypercholesterolemia and Other (Constipation)
ED Past Surgical History: Appendectomy and Other (Cataracts)
Social History
Tobacco: Non-smoker
Alcohol: None
Personal:
Living: with family
Review of Systems
Review of Systems
Allergies reviewed?: Yes
All Other Systems: ROS reviewed and negative except as documented in HPI and ROS
Phy Exam
Physical Exam
Physical Exam:
GENERAL: Alert , in no apparent distress
EYE: pupils equal and reactive
NECK: Supple, no significant adenopathy.
ENT: o/p clr, mmm.
CARDIAC: Regular rate and rhythm .
LUNGS: Clear breath sounds bilaterally, no acute respiratory distress, no wheezes/rales/rhonchi
ABDOMEN: Soft, without focal tenderness, no r/g, no cvat
NEUROLOGICAL: Alert and oriented, no focal neuro deficits
SKIN: Warm and dry, skin intact.
MUSCULOSKELETAL: No edema, well perfused.
PSYCH: Normal and appropriate interaction.
Course
Orders/Labs/Results
Orders:
Orders
07/02/24 07:17
CT Abd/pel W Iv And Oral Contr Urgent
Comment:
Reason For Exam: No bm multiple days, new. concern for CORI
Iohexol [Omnipaque] See Protocol PO NOW STA
07/02/24 07:38
Complete Blood Count/With Diff Urgent
Comprehensive Metabolic Panel Urgent
Lipase Urgent
Abnormal Lab Results
07/02/24
07:38
RBC 4.19 L 10^6/uL
(4.70-6.10)
Hct 37.0 L %
(39.0-52.0)
MCH 32.0 H pg
(27.0-31.0)
MPV 10.6 H fL
(7.4-10.4)
Monocytes % 10.9 H %
(1.7-9.3)
Creatinine 0.6 L mg/dL
(0.7-1.3)
Glucose 102 H mg/dl
(70-99)
07/02/24 07:38
07/02/24 07:38
Vital Signs
Initial and Last Documented VS:
Initial Vital Signs
Temp Pulse Resp BP Pulse Ox
97.8 F 72 16 146/73 98
07/02/24 07:01 07/02/24 07:01 07/02/24 07:01 07/02/24 07:01 07/02/24 07:01
Last Documented Vital Signs
Temp Pulse Resp BP Pulse Ox
97.8 F 72 16 146/73 98
07/02/24 07:01 07/02/24 07:01 07/02/24 07:01 07/02/24 07:01 07/02/24 07:01
MDM/Problems Addressed
MDM/Problems Addressed:
83-year-old male presenting to the emergency department today with concerns of decreased bowel movements in past 3 days. Unable to have a bowel movement in the past 3 days despite multiple medications to help go. Rectal examination without fecal
impaction or abnormality. Plan for CT scan for assessment of possible bowel obstruction. CT without emergent findings. Patient claims that he feels well would like to go home. He was written for additional medications to help with constipation
otherwise will follow-up with GI. He does have an appointment in the next few weeks. Return precautions given.
*Critical Care Note
Total Time (30-74mins, 75-104mins- exclusive of procedures): Not Applicable
ED Attending Note
-
Portions of this chart may have been created with voice recognition software.� Occasional wrong word or��sound alike� substitutions may have occurred due to the inherent limitations of voice recognition software.
Discharge Plan
Departure
Patient Disposition: Home (Routine Discharge)
Date of Disposition: 07/02/24
Time of Disposition: 11:06
Patient with high blood pressure during this ER visit?: No
Condition: Good
Covid-19: Not Applicable
Discharge Problem:
Constipation
Instructions: Constipation, Adult (DC)
Prescriptions:
New
bisacodyl [The Magic Bullet] 10 mg suppository
10 mg NM DAILY PRN (Reason: Constipation) Qty: 12 0RF
No Action
losartan 50 mg Tablet
50 mg PO HS
atorvastatin 20 mg Tablet
20 mg PO HS
polyethylene glycol 3350 [Miralax] 17 gram Powder In Packet
17 g PO DAILY
magnesium hydroxide [Medi-Milk Of Magnesia] 400 mg/5 mL Suspension
30 mg PO HS
tamsulosin 0.4 mg Capsule
0.4 mg PO HS
docusate sodium [Colace] 100 mg Capsule
200 mg PO HS
folic acid 1 mg Tablet
1 mg PO DAILY
finasteride 5 mg Tablet
5 mg PO DAILY
cholecalciferol (vitamin D3) [Vitamin D3] 50 mcg (2,000 unit) Tablet
50 mcg PO DAILY
Linzess 290 mcg Capsule
290 mcg PO DAILY
memantine 7 mg Capsule,Sprinkle,Er 24hr
14 mg PO DAILY
mecobalamin (vitamin B12)
100 mcg PO DAILY
Saccharomyces boulardii [Florastor] 250 mg Capsule
250 mg PO DAILY
metoprolol tartrate 25 mg Tablet
25 mg PO DAILY
aspirin 81 mg Capsule
81 mg PO DAILY
Referrals:
Dwayne Carcamo MD [Family Provider] -
Activity Restrictions/Additional Instructions:
You came to the emergency department today with concerns of constipation. Your CT scan did not see any emergent findings. Please use the suppository and continue your bowel regimen and follow-up closely with GI. Return for any worsening, new or
concerning symptoms.
Interventions
Interventions:
*Risk Screen - Suicide Last Done: 07/02/24 07:01
*General Assessment Last Done: 07/02/24 09:36
*Neglect/Abuse Screening Last Done: 07/02/24 07:01
*ED- Fall Risk Assessment Last Done: 07/02/24 11:10
*ED COVID-19 Vaccine History Last Done: 07/02/24 07:34
*Nursing Disposition Last Done: 07/02/24 11:10
SF-Piuulm-Jnkeoewqdx Assessment Last Done: 07/02/24 07:34
Discharge Date and Time
Discharge Date/Time: 07/02/24 11:10
Print Language: LUXEMBOURG[place]
[2024-07-02 08:01] LABS: ALT (SGPT) 22 U/L (0-50); AST (SGOT) 37 U/L (17-59); Albumin 4.1 g/dl (3.5-5.0); Alkaline Phosphatase 54 U/L (38-126); Blood Urea Nitrogen 10 mg/dl (9-20); Calcium 9.1 mg/dl (8.4-10.2); Carbon Dioxide 26 mmol/L (22-30); Chloride 106 mmol/L (98-107); Estimated Creatinine Clearance 89 ml/min; Glucose 102 mg/dl (70-99); Lipase 122 U/L (23-300); Potassium 4.2 mmol/L (3.5-5.1); Sodium 138 mmol/L (135-145); Total Bilirubin 0.8 mg/dl (0.2-1.3); Total Protein 6.5 g/dl (6.3-8.2); eGFR > 60.00
== END 2024-07-02 11:10 | disposition home or self-care (01) ==
LOC: EMR 06:57
PROVIDERS: Physician Assistant; EMERGENCY PHYSICIAN Student in an Organized Health Care Education/Training Program; FAMILY PHYSICIAN Internal Medicine
DX: K59.00 Constipation, unspecified (principal); I10 Essential (primary) hypertension; E78.00 Pure hypercholesterolemia, unspecified; Z90.49 Acquired absence of other specified parts of digestive tract
CPT/HCPCS: 99284; 74177; 80053; 83690; 85025; Q9967

== ENCOUNTER → 2025-01-10 12:03 | Outpatient (REF) | payer OTHER, SELFPAY | LOC: PAVMRI 12:03 | PROVIDERS: ATTENDING PHYSICIAN Psychiatry & Neurology Neurology; FAMILY PHYSICIAN Internal Medicine | DX: I67.89 Other cerebrovascular disease (principal) | CPT/HCPCS: 70551 ==